=== PATIENT | male | born 1990 | race Two or more races ===

== ENCOUNTER 2020-03-31 05:50 | Day surgery (SDC) | payer OTHER ==
[2020-03-31] MEDS ORDERED: CARAFATE1 GM/10 ML PO (07:41)
[2020-03-31] MEDS ORDERED: NEXIUM 24HR20 M1 PO (07:42)
== END 2020-03-31 08:45 | disposition home or self-care (01) ==
LOC: AMB-ENDOS 05:50 → EDBD 14:30 → AMB-ENDOS 14:30
PROVIDERS: ATTEND Surgery
DX: D13.1 Benign neoplasm of stomach (principal); K44.9 Diaphragmatic hernia without obstruction or gangrene; Z20.828 Contact with and (suspected) exposure to other viral communicable diseases